=== PATIENT | female | born 1945 | race Caucasian/White ===

== ENCOUNTER → 2016-06-09 | Day surgery (SDC) | payer MEDICARE ==
--- NOTE | 2016-06-08 14:24 | TH ---
cc: ARMAND DICKINSON M.D. DATE: 06/09/2016 DATE OF : 1945 PROCEDURE TO BE PERFORMED Removal of implants and capsulorrhaphies. HISTORY OF PRESENT ILLNESS This is a pleasant 70-year-old female who presents with an inflamed right breast with lower pole ulcers. The patient had been seen in a dermatology practice and was referred to us for further management. She stated she has been having this issue for the last week or so. Her current implants were placed in 1998. She had previous implants for an augmentation mammoplasty in 1975. The current implants placed in 1998 are saline. PAST MEDICAL HISTORY The patient does have history of tonsillectomy and appendectomy. MEDICATIONS Medications include Claritin, and currently on Z-Robbie. ALLERGIES 1. PENICILLIN. 2. KEFLEX. 3. BACTRIM. 4. DOXYCYCLINE. 5. . 6. ULTRAM. 7. ATROPINE. HABITS Benign. REVIEW OF SYSTEMS Does have caps and crowns. BREAST HISTORY Otherwise unremarkable. The patient does have ultrasounds apparently, and has been a while since she had a mammogram. PHYSICAL EXAMINATION GENERAL APPEARANCE: The patient is a well-developed female in no acute distress. Body habitus is within normal limits. There appear to be no deformities. Appears to have attention to grooming. HEENT: Conjunctiva and lids are within normal anatomical limits. The pupils are reactive to light and accommodation, size and symmetry. There is no evidence of exudate, hemorrhage, or vessel change. The external inspection of the ears and nose fails to demonstrate any pathology, scars, lesions, or masses. Nasal mucosa, septum, and turbinates appear to be well-hydrated as well as the lips and gums. No evidence of masses in the hypopharynx or submental area. CHEST: The patient shows no evidence of intercostal retractions. LUNGS: Clear to auscultation without any abnormal sounds or rubs. CARDIOVASCULAR: The patient has a normal heart rate and rhythm. There is no evidence of noted carotid bruits. Femoral pulses and pedal pulses in the extremities are also within normal limits. ABDOMEN: Soft with no evidence of masses or tenderness. Unable to palpate the liver or spleen. No evidence of hernia. MUSCULOSKELETAL: Appears to be reasonable range of motion of the head, neck, spine, ribs, pelvis, right upper extremity, left upper extremity, right lower extremity, and left lower extremity. The muscle strength and tone appears to be equal and within accepted limits. SKIN: There are no rashes, lesions, or ulcers on the trunk, back or extremities. NEUROLOGICAL: Examination is grossly normal. PSYCHIATRIC: The patient appears to have good orientation of time, place, and person. Does not appear to have any mood affects of depression, anxiety, or agitation. BREASTS: The right breast shows some areas of cellulitic with a level IV capsular contraction. There is a papule on the upper quadrant and there is an ulceration with seropurulent drainage on the lower quadrant. The tissue again is very edematous and red in nature. The left breast shows slight ptosis with no evidence of capsule contraction. ASSESSMENT AND PLAN A 70-year-old female with a history of infected right breast implant. Discussion is held with the patient in regards to have those removed as soon as possible. I plan to remove the implant, perform a full capsulectomy, perform the proper irrigation and drainage over a drain. The recent possible complications were discussed with the patient that include but not limited to bleeding, infection, scar, asymmetry, the need for further surgery, etc. The patient currently is on the Z-Robbie. We will culture intraoperative to assess the degree of bacteria if so. MD LORE Pinon/PASTORA /11:44 AM /2:23 PM
[~2016-06-09] MED LIST: ACETAMINOPHEN 1000 MG/100 ML VIAL IV ONE; ACETAMINOPHEN 325 MG TAB ONE; BACITRACIN IM FOR SOLN 50,000 UNIT VIAL ONE; BUPIVACAINE/EPINEPHRINE 0.25% PF 30 ML VIAL ONE; GENTAMICIN SULFATE 80 MG/2 ML VIAL ONE; LACTATED RINGER'S 1000 ML INJ 1,000 ML ONE; LIDOCAINE 1%/EPINEPHrine 1:100,000 SOLN 20 ML VIAL ONE; MIDAZOLAM HCL 2 MG/2 ML VIAL ONE; NEOMYCIN/POLYMYXIN/BACITRACIN OINT 15 GM TUBE ONE; ONDANSETRON HCL 4 MG/2 ML VIAL IV PUSH ONE; PROPOFOL 200 MG/20 ML AMP IV ONE; SODIUM CHLORIDE 0.9% 20 ML VIAL ONE; VANCOMYCIN 500 MG VIAL ONE; ceFAZolin INJ 1,000 MG VIAL ONE
--- NOTE | 2016-06-09 12:57 | TN ---
cc: GERMÁN REDMAN M.D. DATE OF SURGERY 06/09/2016 PREOPERATIVE DIAGNOSIS Abscess right breast status post augmentation mammoplasty, exposed implant. PROCEDURE Removal of implant, full capsulectomy of the right breast and removal of left breast implant. SURGEON Germán Redman MD NIGHT GUARD Vandana Dahl, MS3 DRAINS Two 10-mm Reliavac drain, one drain per breast. COMPLICATIONS None. PROCEDURE She was properly consented, marked, properly anesthetized. The skin was sterilized with Betadine solution, sterile draping applied. I also applied a total of 30 cc of 1% lidocaine with epinephrine mixed with 0.25% Marcaine in a 2:1 ratio. Through the previous inframammary incision, our attention was directed first to the left breast where, utilizing a 15 blade, incision was carried out in the full length of the previous incision. Finding the capsule, the implant was removed. The capsule was very minimal and had absolutely no evidence of pathology that I could identify. After irrigating with warm normal saline, through a separate stab wound a 10-mm BRETT drain was brought out and secured in place and the wounds were closed in multiple layers of 2-0 Monocryl suture including Hue's capsule, Hue's fascia and dermis. Attention was directed to the right breast where the patient had indeed an exposed breast implant, two ulcers on the lower lateral pole. Through that I proceeded an elongated incision and the implant was removed. After irrigating the pocket and finding there was an old what appears to be infected hematoma, cultures were obtained and at this point full capsulectomy was carried out in the usual fashion. Specimen was sent to pathology for further analysis. No evidence of pathology was identified. Through a separate stab wound laterally and inferior, a 10-mm BRETT drain was brought out and secured in place as well and layered closure was done utilizing 2-0 Monocryl suture in the dermis and subcu. Antibiotic ointment was applied to the incision and absorbent dressing applied. Overall the patient tolerated the procedure well. She was awakened, extubated in the operating room and transferred back to the Post-Anesthesia Care Unit in stable condition. No complication appreciated. The patient tolerated the procedure fairly well. Of note, this the implant and the capsulectomy was were placed in the subglandular level. MD AD Pinon /12:42 PM /12:46 PM [facility]ITAL[facility]ney
== END | disposition home or self-care (01) ==
LOC: ESDC 09:59
PROVIDERS: ATTEND Plastic Surgery
DX: T85.79XA Infection and inflammatory reaction due to other internal prosthetic devices, implants and grafts, initial encounter (principal)
CPT/HCPCS: 00402; 19371; 87070; 87205; 88307; 88311; J0131; J2250; J2405; J3010; J3370; J7120; 88304; 88305; J0690; J1580